=== PATIENT | female | born 1955 | race American Indian/Alaskan Native ===

== ENCOUNTER 2020-05-05 14:09 | Outpatient (CLI) | payer BC, MEDICARE ==
--- NOTE | 2020-05-06 12:00 | Mammography Report ---
DIGITAL SCREENING MAMMOGRAM WITH CAD, 05/06/2020 CLINICAL INFORMATION / INDICATION: Routine screening mammography. TECHNIQUE: Digital bilateral 2D mammography was obtained in the craniocaudal and mediolateral obliqu e projections. This examination was interpreted with the benefit of Computer-Aided Detection analysis . COMPARISON: 05/31/2017 FINDINGS: Breast Density: There are scattered areas of fibroglandular density. No dominant mass, suspicious calcifications, or architectural distortion in either breast. No interval change. IMPRESSION: No mammographic evidence of malignancy. Follow up recommendation: Routine yearly BI-RADS Category 1: Negative. A "normal" or negative report should not discourage follow up or biopsy of a clinically significant f inding. A written summary of these findings will be mailed to the patient. The patient will be entered into a mammography reporting system which will generate a reminder letter for the patient's next appointmen t at the appropriate interval. The [employer] recommends yearly mammograms starting at age 40 and continuing as l aracelis as a woman is in good health. Breast MRI is recommended for women with an approximate 20-25% or greater lifetime risk of breast cancer, including women with a strong family history of breast or ova josh cancer or who have been treated for Hodgkin's disease. Signer Name: Deisy Keita MD Signed: 05/06/2020 11:56 AM Workstation Name: [id number]
--- NOTE | 2020-05-06 17:12 | XRay Report ---
Thoracic spine 2 views Indication: THORACIC BACK PAIN, UNSPECIFIED BACK PAIN LATERALITY, M54.6 Findings: There is no fracture, subluxation, or other acute radiographic abnormality of the thoracic spine. The re is spondylitic change noted in the mid and lower thoracic spine. There is mild disc space narrowin g and osteophyte formation. There is slight scoliotic-like curvature Signer Name: Mehdi Llanes MD Signed: 05/06/2020 5:08 PM Workstation Name: [id number]
== END 2020-05-05 14:10 | disposition home or self-care (01) ==
LOC: SPVIMAG 14:09
PROVIDERS: ATTEND Internal Medicine
DX: Z12.31 Encounter for screening mammogram for malignant neoplasm of breast (principal); M47.814 Spondylosis without myelopathy or radiculopathy, thoracic region; M48.04 Spinal stenosis, thoracic region; M25.78 Osteophyte, vertebrae
CPT/HCPCS: 72072; 77067

== ENCOUNTER 2021-05-10 10:59 | Outpatient (CLI) | payer MEDICARE ==
--- NOTE | 2021-05-11 15:35 | Mammography Report ---
DIGITAL SCREENING MAMMOGRAM WITH CAD, 05/10/2021 CLINICAL INFORMATION / INDICATION: Routine screening mammography. SCREENING MAMMO Z12.31 TECHNIQUE: Digital bilateral 2D mammography was obtained in the craniocaudal and mediolateral obliqu e projections. This examination was interpreted with the benefit of Computer-Aided Detection analysis . COMPARISON: 05/05/2020 and 05/31/2017 FINDINGS: Breast Density: There are scattered areas of fibroglandular density. No dominant mass, suspicious calcifications, or architectural distortion in either breast. IMPRESSION: No mammographic evidence of malignancy. Follow up recommendation: Routine yearly BI-RADS Category 1: NEGATIVE A "normal" or negative report should not discourage follow up or biopsy of a clinically significant f inding. A written summary of these findings will be mailed to the patient. The patient will be entered into a mammography reporting system which will generate a reminder letter for the patient's next appointmen t at the appropriate interval. The [employer] recommends yearly mammograms starting at age 40 and continuing as l aracelis as a woman is in good health. Breast MRI is recommended for women with an approximate 20-25% or greater lifetime risk of breast cancer, including women with a strong family history of breast or ova josh cancer or who have been treated for Hodgkin's disease. Signer Name: Scotty Martines MD Signed: 05/11/2021 3:30 PM Workstation Name: [id number]
== END 2021-05-10 11:00 | disposition home or self-care (01) ==
LOC: SPVWC 10:59
PROVIDERS: ATTEND Internal Medicine
DX: Z12.31 Encounter for screening mammogram for malignant neoplasm of breast (principal)
CPT/HCPCS: 77067